=== PATIENT | male | born 1965 | race African-American/Black ===

== ENCOUNTER 2022-09-26 08:54 | Day surgery (SDC) | payer BC ==
[2022-09-24 15:23] VITALS: BMI 30.4
[2022-09-26] MEDS ORDERED: PROPOFOL 40 ML ONE (10:34)
[2022-09-26] MEDS ORDERED: PROPOFOL 20 ML ONE (11:09)
== END 2022-09-26 11:55 | disposition home or self-care (01) ==
LOC: CSHSDC 08:54
PROVIDERS: ATTEND Internal Medicine Gastroenterology
PROC: 0DBN8ZZ Excision of Sigmoid Colon, Via Natural or Artificial Opening Endoscopic (ICD-10-PCS; principal; 2022-09-26)
DX: Z12.11 Encounter for screening for malignant neoplasm of colon (principal); D12.5 Benign neoplasm of sigmoid colon; K64.9 Unspecified hemorrhoids
CPT/HCPCS: 88305; J2704

== ENCOUNTER 2025-11-08 11:15 | Outpatient (CLI) | payer BC | END 2025-11-08 11:16 | disposition home or self-care (01) | LOC: CSHRAD 11:15 | PROVIDERS: ATTEND Chiropractor | DX: M25.512 Pain in left shoulder (principal); M19.012 Primary osteoarthritis, left shoulder ==